=== PATIENT | female | born 1945 | race Caucasian/White ===

== ENCOUNTER 2021-07-09 19:13 | Emergency (ER) | payer MEDICARE ==
[~2021-07-09] VITALS: Ht 152.4 cm; Wt 36.5 kg
[~2021-07-09 19:13] MED LIST: ACYC-57 PO; BISO1TAB92 PO; LEVO100T5 PO; LORA-445 PO; OMEP20TA62 PO; PROM50TA4 PO; SUMA100T3 PO
--- NOTE | 2021-07-09 20:23 | NUR ---
to room from wall at this time. Assumed care of pt at this time.
--- NOTE | 2021-07-09 20:41 | NUR ---
BLADDER SCAN SHOWS >[phone] ML
--- NOTE | 2021-07-09 21:14 | NUR ---
PT TO RADIOLOGY FOR US. REPORT TO CHEVY Cruz RN.
[2021-07-09 22:11] LABS: ANION GAP 7 mmol/L (5-15); CALCIUM 8.3 mg/dL (8.5-10.1); CHLORIDE 112 mmol/L (98-107)
[2021-07-09 22:36] VITALS: BP 136/68
== END 2021-07-09 22:38 | disposition home or self-care (01) ==
LOC: ED 22:37
DX: R33.9 Retention of urine, unspecified (principal); K62.3 Rectal prolapse
CPT/HCPCS: 36415; 51702; 76770; 80048; 99284